=== PATIENT | female | born 1950 | race African-American/Black ===

== ENCOUNTER 2021-02-23 03:39 | Observation (INO) ==
[2021-02-23] MEDS ORDERED: SODIUM CHLORIDE 0.9% 1,000 ML IV STA (04:18)
[2021-02-23 04:41] LABS: Basophils % 0.1 % (0.0-0.8); Eosinophils # 0.1 10*3/uL (0.0-0.87); Eosinophils % 0.5 % (0.00-10.9); Hematocrit 31.6 VOL% (35.7-47.0); Hemoglobin 10.4 GM/DL (12.0-16.0); Immature Granulocytes % 0.4 %; Immature Granulocytes Absolute 0.04 #; Lymphocytes # 2.2 10*3/uL (1.4-4.0); Lymphocytes % 23.1 % (21.3-54.2); Mean Corpuscular HGB Conc 32.9 GM/DL (32-36); Mean Platelet Volume 12.4 FL (9.6-12.0); Monocytes % 18.7 % (1.7-12.7); Neutrophils % 57.2 % (38.7-73.9); Platelet Count 145 T/CUMM (130-400); Red Blood Count 4.16 MC/CUMM (3.8-5.5); Red Cell Distribution Width 14.9 % (9.3-17.3); White Blood Count 9.6 T/CUMM (4-12)
[2021-02-23 05:15] LABS: Hypochromasia 1+; Lymphocytes 25 % (20-55); Microcytosis 1+; Platelet Estimate Adequate; Segmented Neutrophils 64 % (50-85); Total Cells Counted 100
[2021-02-23 06:26] LABS: Albumin 2.8 G/DL (3.4-5.0); Bilirubin,Total 2.1 MG/DL (0.20-1.00); Calcium 8.7 MG/DL (8.5-10.1); Osmolality,Calculated 296.4 MOS/KG (273-304); Potassium 3.8 MMOL/L (3.5-5.1); Total Protein 6.6 G/DL (6.4-8.2)
[2021-02-23] MEDS ORDERED: NITROGLYCERIN SL 0.4 MG TABLET SL PRN (07:33)
[2021-02-23] MEDS ORDERED: DEXTROSE 50% 25 GM/50 ML VIAL IV PRN (07:36)
[2021-02-23] MEDS ORDERED: GLUCAGON 1 MG VIAL IM PRN (07:36)
[2021-02-23] MEDS ORDERED: ACETAMINOPHEN 325 MG TABLET PO PRN (07:41)
[2021-02-23] MEDS ORDERED: ONDANSETRON 4 MG/2 ML VIAL IV PRN (07:41)
[2021-02-23 08:27] LABS: HDL Cholesterol 29 MG/DL (40-60); Risk Ratio 4.17; Thyroid Stimulating Hormone < 0.005 uIU/ml (0.358-3.74); Triglycerides 114 MG/DL (2-150); VLDL Cholesterol 22.8 MG/DL
[2021-02-23] MEDS ORDERED: carvediloL 6.25 MG TABLET PO SCH (09:00)
[2021-02-23] MEDS: ASPIRIN CHEW 81 MG TABLET PO SCH (09:49)
[2021-02-23] MEDS: PANTOPRAZOLE 40 MG TABLET PO SCH (09:50)
[2021-02-23] MEDS: ENOXAPARIN 40 MG/0.4 ML SYRINGE SUBCUT SCH (09:50)
[2021-02-23 12:40] LABS: Free T4 (Free Thyroxine) 3.71 NG/DL (0.76-1.46)
[2021-02-23] MEDS: DESITIN 4OZ/NYSTATIN 15 GRAM MIXTURE PASTE TOP SCH ×2 (16:49→21:22)
[2021-02-23] MEDS ORDERED: ATORVASTATIN 20 MG TABLET PO SCH (21:00)
[2021-02-23] MEDS: methIMAzole 5 MG TABLET PO SCH (21:13)
[2021-02-23] MEDS: PROPRANOLOL 10 MG TABLET PO SCH (21:13)
[2021-02-24 06:20] LABS: Basophils % 0.3 % (0.0-0.8); Eosinophils # 0.2 10*3/uL (0.0-0.87); Eosinophils % 2.8 % (0.00-10.9); Hemoglobin 9.3 GM/DL (12.0-16.0); Immature Granulocytes % 0.5 %; Immature Granulocytes Absolute 0.04 #; Lymphocytes # 2.2 10*3/uL (1.4-4.0); Lymphocytes % 27.6 % (21.3-54.2); Mean Corpuscular HGB Conc 33.2 GM/DL (32-36); Mean Corpuscular Volume 75.9 FL (87-102); Monocytes % 16.4 % (1.7-12.7); Neutrophils % 52.4 % (38.7-73.9); Red Blood Count 3.69 MC/CUMM (3.8-5.5); White Blood Count 7.9 T/CUMM (4-12)
[2021-02-24 06:36] LABS: Calcium 8.3 MG/DL (8.5-10.1); Osmolality,Calculated 279.5 MOS/KG (273-304); Potassium 3.8 MMOL/L (3.5-5.1)
[2021-02-24 06:58] LABS: Platelet Count 114 T/CUMM (130-400)
[2021-02-24] MEDS: PANTOPRAZOLE 40 MG TABLET PO SCH (09:53)
[2021-02-24] MEDS: ASPIRIN CHEW 81 MG TABLET PO SCH (09:53)
[2021-02-24] MEDS: ENOXAPARIN 40 MG/0.4 ML SYRINGE SUBCUT SCH (09:53)
[2021-02-24] MEDS: PROPRANOLOL 10 MG TABLET PO SCH (09:53)
[2021-02-24] MEDS: DESITIN 4OZ/NYSTATIN 15 GRAM MIXTURE PASTE TOP SCH (09:53)
[2021-02-24] MEDS: methIMAzole 5 MG TABLET PO SCH ×2 (09:53→16:24)
[2021-02-24 10:00] LABS: Eosinophils 2 % (0-10); Lymphocytes 27 % (20-55); Segmented Neutrophils 58 % (50-85); Total Cells Counted 100
[2021-02-24 10:01] LABS: Hypochromasia 2+; Platelet Estimate Adequate; Polychromasia Slight
[2021-02-24 17:09] VITALS: BP 142/80
== END 2021-02-24 17:44 | disposition home or self-care (01) ==
LOC: N.ED 03:39 → N.EDINP 03:39 → SUATTDRO 07:36 → N.EDINP 11:47 → N.TELES 11:51
PROVIDERS: ADMIT Hospitalist; ATTEND Phlebology